=== PATIENT | male | born 2000 | race Two or more races ===

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

== ENCOUNTER → 2020-02-10 | Outpatient (CLI) | payer SELFPAY | LOC: M LABSMTC 09:51 | PROVIDERS: ATTEND Pediatrics | DX: Z20.828 Contact with and (suspected) exposure to other viral communicable diseases (principal) ==

== ENCOUNTER → 2020-09-22 | Outpatient (REF) | payer BC ==
[2020-09-22 14:51] LABS: RSV AMPLIFICATION NEGATIVE (NEGATIVE)
== END ==
LOC: M SFHCPLAZ 13:24
PROVIDERS: ATTEND Nurse Practitioner Family
DX: R09.81 Nasal congestion (principal)

== ENCOUNTER → 2021-02-09 | Outpatient (REF) | payer BC | LOC: M LAB REF 10:16 | PROVIDERS: ATTEND Internal Medicine Infectious Disease | DX: R09.81 Nasal congestion (principal); Z20.822 Contact with and (suspected) exposure to COVID-19 ==

== ENCOUNTER 2021-08-04 20:00 | Emergency (ER) | payer BC ==
[~2021-08-04] VITALS: Ht 185.4 cm; Wt 104.5 kg
[2021-08-04] MEDS ORDERED: diazePAM 10MG/2ML SYRINGE (J3360 PER 5MG) IV ONE (20:10)
[2021-08-04] MEDS ORDERED: MORPHINE 4 MG/ML 1ML VIAL/SYRINGE IV ONE ×2 (20:10→20:40)
[2021-08-04 21:33] VITALS: BP 146/95
== END 2021-08-04 21:36 | disposition home or self-care (01) ==
LOC: M ED 20:00
DX: S43.014A Anterior dislocation of right humerus, initial encounter (principal); W50.0XXA Accidental hit or strike by another person, initial encounter; Y93.65 Activity, lacrosse and field hockey
CPT/HCPCS: 23650; 73020; 73030; 94760; 96374; 96375; 96376; 99284; J2270; J3360

== ENCOUNTER → 2022-08-17 | Outpatient (REF) | LOC: M LAB 14:49 | PROVIDERS: ATTEND Nurse Practitioner Adult Health | DX: Z02.89 Encounter for other administrative examinations (principal) ==

== ENCOUNTER → 2022-10-18 | Outpatient (CLI) | payer BC ==
[2022-10-18 16:55] LABS: BASO % 0.4 % (0.0-1.0); EOS # 0.3 10^3/uL (0.0-0.5); EOS % 3.5 % (0.0-3.0); HEMATOCRIT 42.9 % (42.0-52.0); HEMOGLOBIN 13.2 g/dl (13.5-17.5); LYMPH # 2.8 10^3/uL (1.5-5.0); LYMPH % 38.8 % (24.0-44.0); MEAN CORPUSCULAR HEMOGLOBIN 22.2 pg (27.0-33.0); MEAN CORPUSCULAR HGB CONC 30.8 g/dl (32.0-36.5); MEAN CORPUSCULAR VOLUME 72.1 fl (80.0-96.0); MONO # 0.6 10^3/uL (0.0-0.8); MONO % 7.6 % (2.0-8.0); NEUTROPHILS # 3.6 10^3/uL (1.5-8.5); NEUTROPHILS % 49.6 % (36.0-66.0); PLATELET COUNT, AUTOMATED 235 10^3/uL (150-450); RED BLOOD COUNT 5.95 10^6/uL (4.30-6.10); WHITE BLOOD COUNT 7.2 10^3/uL (4.0-10.0)
[2022-10-18 17:13] LABS: THYROID STIMULATING HORMONE 1.643 uIU/ML (0.55-4.78)
[2022-10-18 17:14] LABS: ALBUMIN 3.9 G/DL (3.2-5.2); ALKALINE PHOSPHATASE 69 U/L (46-116); ALT/SGPT 25 U/L (7.0-40); AST/SGOT 29 U/L (<34); BILIRUBIN,TOTAL 0.7 MG/DL (0.3-1.2); BLOOD UREA NITROGEN 20 MG/DL (9-23); CARBON DIOXIDE LEVEL 27 MMOL/L (20-31); CHLORIDE LEVEL 106 MMOL/L (98-107); CHOLESTEROL LEVEL 153 MG/DL (<200); CHOLESTEROL RISK RATIO 2.87 (<5); CREATININE FOR GFR 1.11 MG/DL (0.70-1.30); GLOMERULAR FILTRATION RATE > 60.0 (>60); GLUCOSE, FASTING 85 MG/DL (60-100); HDL CHOLESTEROL 53.2 MG/DL (>40); NON-HDL-C 99.8 MG/DL; POTASSIUM SERUM 4.2 MMOL/L (3.5-5.1); SODIUM LEVEL 140 MMOL/L (136-145); TRIGLYCERIDES LEVEL 64 MG/DL (<150)
[2022-10-18 17:16] LABS: FREE T4 1.26 NG/DL (0.89-1.76)
[2022-10-18 17:19] LABS: HEMOGLOBIN A1c 5.1 % (4.0-6.0)
== END ==
LOC: M WUC 11:40
PROVIDERS: ATTEND Nurse Practitioner Family
DX: Z00.00 Encounter for general adult medical examination without abnormal findings (principal); Z13.220 Encounter for screening for lipoid disorders; Z13.1 Encounter for screening for diabetes mellitus; R53.83 Other fatigue

== ENCOUNTER → 2023-08-27 | Outpatient (CLI) | payer BC | LOC: M WUC 13:09 | PROVIDERS: ATTEND Nurse Practitioner Family | DX: Z01.84 Encounter for antibody response examination (principal) ==

== ENCOUNTER → 2024-05-23 | Outpatient (REF) | payer BC | LOC: M SFHCDERM 17:57 | PROVIDERS: ATTEND Dermatology | DX: D48.9 Neoplasm of uncertain behavior, unspecified (principal) ==

== ENCOUNTER → 2024-08-27 | Outpatient (REF) | payer BC ==
[2024-08-27 14:16] LABS: IRON (FE) 60.0 UG/DL (65-175); PERCENT SATURATION 18.8 % (19.7-50.0)
== END ==
LOC: M LAB REF 12:05
PROVIDERS: ATTEND Internal Medicine
DX: Z02.0 Encounter for examination for admission to educational institution (principal); D64.9 Anemia, unspecified; R19.7 Diarrhea, unspecified; K58.0 Irritable bowel syndrome with diarrhea